=== PATIENT | male | born 1960 | race Hispanic/Latino ===

== ENCOUNTER 2019-01-26 09:02 | Outpatient (CLI) | payer OTHER ==
--- NOTE | 2019-01-26 10:41 | XRay Report ---
AP AND LATERAL LUMBOSACRAL SPINE: History: Back injury. There is straightening of the normal lumbar lordosis which could be secondary to positioning or muscular spasm. Piyy-[id number] degenerative disc disease and facet arthropathy are identified at all levels. L4-5 appears to be the most affected level. There is no evidence for fracture, subluxation or bone lesion. The sacrum is grossly intact. There are mild degenerative changes at the SI joints. IMPRESSION: Ropx-fi-kdnjyrue multilevel lumbar spondylosis. No evidence for acute injury.
== END 2019-01-26 09:03 | disposition home or self-care (01) ==
LOC: XRAY 09:02
PROVIDERS: ATTEND Internal Medicine
DX: M47.816 Spondylosis without myelopathy or radiculopathy, lumbar region (principal)
CPT/HCPCS: 72100